=== PATIENT | female | born 1930 | race African-American/Black ===

== ENCOUNTER 2017-08-11 15:20 | Inpatient (IN) | payer OTHER ==
[~2017-08-11] VITALS: Ht 175.3 cm; Wt 81.6 kg
[2017-08-11 16:04] LABS: CHLORIDE 100 mEq/L (98-107)
[2017-08-11 16:06] LABS: BASOPHILS % 1.1 % (0.0-2.0); HEMATOCRIT. 35.3 % (36.0-48.0); HEMOGLOBIN. 11.9 g/dL (12.0-16.0); MEAN CORPUSCULAR HEMOGLOBIN 30.9 pg (28.0-32.0); MEAN CORPUSCULAR VOLUME 91.6 fL (81.0-99.0); MEAN PLATELET VOLUME 6.9 fl (7.4-10.4); MONOCYTES % 8.8 % (2.0-8.0); NEUTROPHILS % 61.1 % (40.0-76.0); PLATELET 216 x1000/uL (130-400); RED BLOOD CELL COUNT 3.85 mill/uL (4.2-5.4); RED CELL DISTRIBUTION WIDTH 13.8 % (11.6-14.6)
[2017-08-11 16:09] LABS: CARBON DIOXIDE 29 mEq/L (21-32)
[2017-08-11 16:16] LABS: TROPONIN I < 0.02 ng/mL (0.00-0.04)
[2017-08-11 20:18] LABS: CLARITY URINE CLEAR (CLEAR); COLOR URINE YELLOW (YELLOW); GLUCOSE URINE NEGATIVE (NEGATIVE); KETONES URINE NEGATIVE (NEGATIVE); LEUKOCYTE ESTERASE URINE TRACE (NEGATIVE); NITRITE URINE NEGATIVE (NEGATIVE); OCCULT BLOOD URINE NEGATIVE (NEGATIVE); PROTEIN URINE NEGATIVE (NEGATIVE); SPECIFIC GRAVITY URINE 1.012 (1.005-1.030)
[2017-08-12] MEDS ORDERED: CEFTRIAXONE 1 G PREMIX 50 ML IV ONE
[2017-08-12] MEDS ORDERED: IPRATROPIUM/ALBUTEROL 0.5-3(2.5)MG/3ML NEB INH PRN (08:30)
[2017-08-12] MEDS ORDERED: ACETAMINOPHEN 650MG/20.3ML UDC GT PRN (08:30)
[2017-08-12] MEDS ORDERED: HYDROMORPHONE HCL/PF 2MG/ML CPJ IV PRN (08:30)
[2017-08-12] MEDS ORDERED: ENOXAPARIN 40MG/0.4ML SYR SUBCUT SCH (08:30)
[2017-08-12] MEDS ORDERED: ONDANSETRON HCL 4MG/2ML VIAL IV PRN (08:30)
[2017-08-12] MEDS ORDERED: LEVOFLOXACIN 500MG PREMIX 100 ML IV SCH ×2 (08:30→12:00)
[2017-08-12] MEDS ORDERED: DOCUSATE SODIUM 100MG CAPSULE PO SCH (09:00)
[2017-08-12 09:30] VITALS: BP 146/69
[2017-08-12] MEDS ORDERED: ENOXAPARIN 30MG/0.3ML SYR SUBCUT SCH (10:00)
[2017-08-12] MEDS ORDERED: ASPIRIN 325MG EC TABLET PO SCH (10:00)
[2017-08-12] MEDS ORDERED: OMEPRAZOLE 20MG CAPSULE EXTENDED RELEASE PO SCH (10:00)
[2017-08-12] MEDS ORDERED: PROT40 PO (10:52)
[2017-08-12] MEDS ORDERED: METO25TA6 PO (10:52)
[2017-08-12] MEDS ORDERED: CALC0.253 PO (10:52)
[2017-08-12] MEDS ORDERED: FURO-151 PO (10:52)
[2017-08-12] MEDS ORDERED: FELO5TAB PO ×2 (10:52)
[2017-08-12] MEDS ORDERED: LEVO75TA PO (10:52)
[2017-08-12] MEDS ORDERED: LIP40 PO (10:52)
[2017-08-12] MEDS ORDERED: LOSA100T3 PO (10:52)
[2017-08-12] MEDS ORDERED: LEVOTHYROXINE SODIUM 75MCG TABLET PO SCH (11:00)
[2017-08-12] MEDS ORDERED: METOPROLOL TARTRATE 25MG TABLET PO SCH (11:00)
[2017-08-12] MEDS ORDERED: LOSARTAN POTASSIUM 100 MG TABLET PO SCH (11:00)
[2017-08-12] MEDS ORDERED: CALCITRIOL 0.25MCG CAPSULE PO SCH (11:00)
[2017-08-12 12:00] VITALS: BP 155/76
[2017-08-12 16:00] VITALS: BP_SYST 115; BP_SYST 122; BP_SYST 133; BP_DIAS 58; BP_DIAS 66; BP_DIAS 78
[2017-08-12 17:48] LABS: CREATINE KINASE MB FRACTION 0.7 ng/mL (0.5-3.6); TROPONIN I 0.03 ng/mL (0.00-0.04)
[2017-08-12 17:52] VITALS: BP 115/58
[2017-08-13] MEDS ORDERED: OMEPRAZOLE 20MG CAPSULE EXTENDED RELEASE PO SCH (07:40)
[2017-08-13] MEDS ORDERED: PANTOPRAZOLE 40MG DR TABLET PO SCH (09:00)
[2017-08-13] MEDS ORDERED: ATORVASTATIN CALCIUM 40MG TABLET PO SCH (09:00)
[2017-08-13] MEDS ORDERED: LEVOFLOXACIN 250MG PREMIX 50 ML IV SCH (11:00)
== END 2017-08-12 19:20 | disposition short-term general hospital (02) | DRG 74 ==
LOC: ER 15:39 → 7WST 08-12 02:32 → ENRESERV 08-12 06:45 → CANBEDREQ 08-12 08:39 → 7WST 08-12 09:40
PROVIDERS: ADMIT Internal Medicine Geriatric Medicine; ATTEND Internal Medicine Geriatric Medicine
DX: G90.8 Other disorders of autonomic nervous system (principal); N17.9 Acute kidney failure, unspecified; D63.8 Anemia in other chronic diseases classified elsewhere; I50.9 Heart failure, unspecified; I13.0 Hypertensive heart and chronic kidney disease with heart failure and stage 1 through stage 4 chronic kidney disease, or unspecified chronic kidney disease; K21.9 Gastro-esophageal reflux disease without esophagitis; G56.02 Carpal tunnel syndrome, left upper limb; Z79.899 Other long term (current) drug therapy; R73.9 Hyperglycemia, unspecified; N18.3 Chronic kidney disease, stage 3 (moderate)
CPT/HCPCS: 36415; 70450; 71010; 80053; 81001; 82553; 82962; 83880; 84484; 85025; 87086; 93005; 93880; 93970; 96365; 96372; 99285; J0696; J1650; J1956